=== PATIENT | female | born 1990 | race African-American/Black ===

== ENCOUNTER 2020-08-02 01:28 | Emergency (ER) | payer SELFPAY ==
[~2020-08-02] VITALS: Ht 167.6 cm; Wt 77.6 kg
[2020-08-02 01:57] VITALS: BP 113/71
== END 2020-08-02 02:40 | disposition left against medical advice (07) ==
LOC: ER 01:28
DX: S01.511A Laceration without foreign body of lip, initial encounter (principal); X58.XXXA Exposure to other specified factors, initial encounter; Y93.9 Activity, unspecified; Y92.9 Unspecified place or not applicable
CPT/HCPCS: 99281